=== PATIENT | male | born 1970 | race Caucasian/White ===

== ENCOUNTER 2016-05-31 11:24 | Emergency (ER) | payer MEDICAID | END 2016-05-31 15:57 | disposition left against medical advice (07) | LOC: ER 11:24 | DX: Z53.21 Procedure and treatment not carried out due to patient leaving prior to being seen by health care provider (principal) ==

== ENCOUNTER 2016-06-02 06:58 | Emergency (ER) | payer MEDICAID ==
[2016-06-02] MEDS ORDERED: KETOROLAC 60 MG/2 ML VIAL IM ONE (07:37)
[2016-06-02] MEDS ORDERED: ORPHENADRINE 60 MG/2 ML AMP ONE (07:38)
== END 2016-06-02 10:01 | disposition home or self-care (01) ==
LOC: ER 06:58
DX: S39.012A Strain of muscle, fascia and tendon of lower back, initial encounter (principal); I10 Essential (primary) hypertension; Z87.891 Personal history of nicotine dependence
CPT/HCPCS: 72100; 96372